=== PATIENT | male | born 1940 | race Caucasian/White ===

== ENCOUNTER 2016-04-15 09:14 | Observation (INO) | payer MEDICARE, OTHER ==
--- NOTE | ~2016-04-15 | DS ---
Discharge Summary [facility] [address] [place]. [address] NAME: CHYNA SAMSON : 38 STATUS : DIS Pramod PAT#: [id number] AGE: 75 ADM/REG DATE : 04/15/16 MR#: [id number] REPORT SERV DATE: 04/17/16 DICTATED BY: DATE: REPORT STATUS : Draft TRANSCRIBED BY: MODL DATE: 04/16/16 ADMISSION DATE: 04/15/2016 DISCHARGE DATE: 04/16/2016 The patient was admitted to the [facility]. CONSULTANTS: Dr. Cesar Jaimes of Gastroenterology. DISCHARGE DIAGNOSES: 1. Hematochezia/red blood in the colon on colonoscopy, suspect diverticular. 2. Mild anemia, no acute blood loss anemia during the admission. No transfusion. 3. History of pulmonary fibrosis, on outpatient Ofev therapy. 4. Paroxysmal atrial fibrillation, rate controlled. Not on therapeutic anticoagulation. On aspirin alone for stroke prophylaxis. 5. Hypertension. 6. Osteoarthritis. 7. Hypothyroidism. 8. History of obstructive sleep apnea, utilizing nocturnal CPAP. 9. 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 IMAGING: None. DIAGNOSTICS: Include a colonoscopy prior to admission, no diagnostics during the hospitalization. PERTINENT LABS: Basic metabolic panel x2, normal. CBC demonstrating stable mild anemia with hemoglobin values between 11 and 12. Liver enzymes normal. BRIEF HISTORY: For full details, please see the previously dictated history of present illness by me on 04/15/2016. This is a 75-year-old white male, who had been experiencing intermittent rectal bleeding. Symptoms became progressive as he was completing a colonoscopy prep on the night of 04/14/2016. He underwent his colonoscopy on 04/15/[address] Luz Maria Mendoza noted blood throughout the colon. The source of bleeding could not be identified. Request was made for admission to the Hospitalist Service for observation. HOSPITAL COURSE: The patient was observed overnight in the hospital, on IV fluids with serial hemoglobin and hematocrit values. He did not pass any blood by rectum. He denied any abdominal pain. His diet was advanced without nausea, vomiting, or other issue. He was seen by Gastroenterology on the afternoon of 04/16/2016 and was felt appropriate for discharge to home, with close monitoring and instruction to return to the emergency department should he develop any recurrent hematochezia. Otherwise, he will need to follow up with Luz Maria Mendoza within two to four weeks. He has no specific activity or dietary restrictions at discharge. Discharge Summary [place] [address] [place], [place]. [address] NAME: CHYNA SAMSON : 38 STATUS : DIS Pramod PAT#: [id number] AGE: 75 ADM/REG DATE : 04/15/16 MR#: [id number] REPORT SERV DATE: 04/17/16 DICTATED BY: DATE: REPORT STATUS : Draft TRANSCRIBED BY: MODL DATE: 04/16/16 DISCHARGE MEDICATIONS: Include: 1. Lipitor 40 mg p.o. at bedtime. 2. Cardizem 120 mg p.o. q.a.m. 3. Flecainide 150 mg p.o. every 12 hours. 4. Synthroid 150 mcg p.o. daily. 5. Nexium 40 mg p.o. daily. 6. Aspirin 81 mg p.o. daily. 7. Micardis/HCTZ 40/12.5 mg p.o. q.a.m. 8. Ofev 150 mg p.o. b.i.d. 9. Imodium 2 mg p.o. b.i.d. CHE/MICAELA Justin Gale M.D. / [id number] CC: Winter Herrera M.D. Carlos Baleeiro, M.D. Colleen Schmitt, M.D.
--- NOTE | ~2016-04-15 | HP ---
History And Physical [place] [address] [place]. [address] NAME: CHYNA SAMSON : 38 STATUS : ADM Pramod PAT#: [id number] AGE: 75 ADM/REG DATE : 04/15/16 MR#: [id number] REPORT SERV DATE: 04/15/16 DICTATED BY: DATE: REPORT STATUS : Draft TRANSCRIBED BY: MODL DATE: 04/15/16 DATE OF ADMISSION: 04/15/2016 The patient is admitted to the [facility] Hospitalist Service. CHIEF COMPLAINT: "Colon full of red blood." HISTORY OF PRESENT ILLNESS: Mr. Chyna Samson is a 75-year-old white male, who has been experiencing rectal bleeding off and on for the past one month. He did not think much of it initially because he does have a history of some hemorrhoids, and he had experienced slight hemorrhoidal bleeding in the past. He also takes a medication for pulmonary fibrosis, which causes diarrhea. He saw his hand bender, Dr. Luz Maria Mendoza, approximately one month ago with complaints of rectal bleeding and diarrhea, and was set up for a colonoscopy, which occurred this morning. On colonoscopy, Dr. Mendoza noted that there was an extensive amount of red blood which became bilious-appearing in the more proximal. She went in the colon. She could not find the specific source of the bleeding., and recommended that the patient be admitted to the Hospitalist Service for close monitoring of vital signs and hemoglobin. Noted plan is for an EGD tomorrow. On further questioning, the patient reports that he did begin passing some blood clots by rectum with the colonoscopy prep last night, but prior to last night, had not been experiencing any significant bleeding aside from the previously noted rectal bleeding off and on for the past month. The patient denies any recent chest pain or shortness of breath, different than baseline. He denies any presyncope or syncopal episodes. He feels that he has had good exertional tolerance recently and has not felt particularly weak. He denies any abdominal pain or recent changes in appetite. He denies nausea, vomiting, or hematemesis. REVIEW OF SYSTEMS: Full 14-point review of systems is negative except as dictated in the history of present illness. PAST MEDICAL HISTORY: 1. Includes pulmonary fibrosis requiring 3 to 4 L of oxygen by nasal cannula continuously. Crossing Supervisor, Dr. Valentin Ramirez. 2. Atrial fibrillation, paroxysmal. Managed by Dr. Beckett. Not on any chronic anticoagulation. 3. Hypertension. 4. Hypothyroidism. 5. Obstructive sleep apnea, utilizing home CPAP. 6. Osteoarthritis. PAST SURGICAL HISTORY: Includes spinal stenosis surgery, epidural spinal injections, right rotator cuff surgery, and repair of an umbilical hernia. History And Physical [address] [address] NAME: CHYNA SAMSON : 38 STATUS : ADM Pramod PAT#: [id number] AGE: 75 ADM/REG DATE : 04/15/16 MR#: [id number] REPORT SERV DATE: 04/15/16 DICTATED BY: DATE: REPORT STATUS : Draft TRANSCRIBED BY: MICAELA DATE: 04/15/16 ALLERGIES: NO KNOWN DRUG ALLERGIES. HOME MEDICATIONS: Include: 1. Aspirin 81 mg p.o. daily. 2. Lipitor 40 mg p.o. at bedtime. 3. Cardizem CD 120 mg p.o. q.a.m. 4. Nexium 40 mg p.o. daily. 5. Flecainide 150 mg p.o. every 12 hours. 6. Levothyroxine 150 mcg p.o. daily. 7. Micardis/HCTZ 40/12.5 mg one tablet p.o. q.a.m. 8. Ofev 150 mg p.o. b.i.d. 9. Imodium 2 mg p.o. b.i.d. SOCIAL HISTORY: The patient is , and is here at the bedside. His daughter is here at the bedside as well. 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 He smoked very remotely and quit over 50 years ago with no significant intake. He drinks wine socially when he is out with friends or out at a restaurant. He denies daily alcohol use. He denies use of any illicit substances. He is the remaining surviving child of nine children in his family. FAMILY HISTORY: Pertinent for colon cancer in a brother. Breast cancer in a sister. COPD in two other siblings. All his other siblings are . PHYSICAL EXAMINATION: VITAL SIGNS: Blood pressure 130/67, pulse 60, respiration rate 12, oxygen saturations 97% on 3 L nasal cannula, temperature 97 degrees. GENERAL: This is an obese white male, in no acute distress. Alert and oriented in three dimensions. Pleasant and conversant. HEENT: Normocephalic, atraumatic. Pupils are equally round and reactive to light. No scleral icterus. No conjunctival pallor. No sinus tenderness to palpation. No nasal drainage. Oropharynx is moist and pink with no posterior pharyngeal erythema. No exudate. NECK: Supple with no jugular venous distention. No lymphadenopathy. CARDIOVASCULAR: Regular rate and rhythm. No murmurs, rubs or gallops. LUNGS: Clear to auscultation bilaterally with no wheezes, crackles, or rhonchi. ABDOMEN: Abdomen is soft, nondistended, nontender with normoactive bowel sounds in four quadrants. No hepatosplenomegaly. EXTREMITIES: No cyanosis, clubbing, or edema of the left lower extremity, trace edema of the right lower extremity. The patient's state is chronic due to his prior pseudomonal skin infection. NEUROLOGIC: Cranial nerves 2 through 12 were tested and are intact. Deep tendon reflexes 2+ bilateral brachioradialis and patellar tendons. Sensation intact to fine touch and temperature in all four limbs. Strength 5/5 bilateral upper and lower extremities. LABORATORY DATA: 1. White blood cell count 7.1, hemoglobin 11.5, hematocrit 33.1, platelets 172, INR 1.2. Sodium 141, potassium 4.3, chloride 106, bicarb 26, BUN 15, creatinine 0.76, glucose 111, calcium 8.8, total protein 6.4, albumin 3.1, total bilirubin 0.5, alkaline phosphatase 55, ALT 19, AST 19. History And Physical [address] [address] NAME: CHYNA SAMSON : 38 STATUS : ADM Pramod PAT#: [id number] AGE: 75 ADM/REG DATE : 04/15/16 MR#: [id number] REPORT SERV DATE: 04/15/16 DICTATED BY: DATE: REPORT STATUS : Draft TRANSCRIBED BY: MICAELA DATE: 04/15/16 2. EGD report was reviewed and is on the chart. IMPRESSION: 1. Hematochezia/red blood throughout the colon on colonoscopy. Question diverticular versus upper gastrointestinal source. 2. Mild anemia. 3. History of pulmonary fibrosis, oxygen-dependent, on Ofev. 4. Paroxysmal atrial fibrillation, rate controlled, not anticoagulated. 5. Hypertension. 6. Osteoarthritis. 7. Hypothyroidism. 8. History of obstructive sleep apnea, on chronic CPAP, nightly. PLAN: 1. The patient has been admitted in observation status to [address] [place] [address]. He has been placed on IV fluids, clear liquids, made n.p.o. after midnight for possible EGD as noted per prior GI plan. GI consultation is pending. 2. q.6 hour H and H with transfusion if hemoglobin less than 7 or for other signs of hemodynamic instability. 3. Aspirin is on hold. 4. Non-pharmacologic DVT prophylaxis. 5. Home medications were continued with blood pressure parameters. Discussed Ofev specifically with Dr. Valentin Ramirez as bleeding is a potential side effect of this medication. He recommended continuing the medication unless hemodynamically significant GI bleeding or the need for transfusion develops. He noted that diarrhea is most common side effect of Ofev and recommended that the patient continue taking Imodium for this. [place] dosing will be discussed further with GI. CHE/MICAELA Justin Gale M.D. / [id number] CC: Justin Gale M.D. Dary Estrella M.D. Cesar Beckett M.D., Ph.D, F.A.C.C. Valentin Ramirez M.D. Luz Maria Mendoza M.D.
--- NOTE | ~2016-04-15 | EGD ---
EGD REPORT [facility] [address] [place] [address] NAME: CHYNA SAMSON : 38 STATUS : DIS Pramod PAT#: [id number] AGE: 75 ADM/REG DATE : 04/15/16 MR#: [id number] REPORT SERV DATE: 04/22/16 DICTATED BY: DATE: REPORT STATUS : Draft TRANSCRIBED BY: [facility] DATE: 04/22/16 Endoscopy Center Patient Name: Chyna Samson Date of : 1940 Attending MD: ANJU MEJIA MD Procedure Date No Time: 04/15/2016 Procedure: Colonoscopy Indications: Chronic diarrhea Referring MD: CARRIE RAMIREZ MD Medicines: Monitored Anesthesia Care Complications: No immediate complications. Procedure: Pre-Anesthesia Assessment: - ASA Grade Assessment: III - A patient with severe systemic disease. After I obtained informed consent, the scope was passed under direct vision. Throughout the procedure, the patient's blood pressure, pulse, and oxygen saturations were monitored continuously. The PCF [id number] was introduced through the anus and advanced to the terminal ileum. The colonoscopy was performed without difficulty. The patient tolerated the procedure well. The quality of the bowel preparation was good. Findings: The perianal exam was abnormal. Findings include hemorrhoids. Multiple small and large-mouthed diverticula were found in the entire colon. I suspect these are the cause of bleeding Red blood was found in the entire colon. This became more bilious proximally. There is no endoscopic evidence of mass, polyps, ulcerations or angioectasia in the entire colon. Biopsies were taken with a cold forceps from the entire colon for evaluation of microscopic colitis. No additional abnormalities were found on retroflexion. The terminal ileum appeared normal. Bilious secretions were seen. Impression: - Hemorrhoids found on perianal exam. - Diverticulosis in the entire examined colon. Suspected source. - Blood in the entire examined colon. Recommendation: - Admit the patient to hospital stein for observation. - Await pathology results. - Continue present medications. - No aspirin, ibuprofen, naproxen, or other non-steroidal anti-inflammatory drugs. EGD REPORT [address] [address] NAME: CHYNA SAMSON : 38 STATUS : DIS Pramod PAT#: [id number] AGE: 75 ADM/REG DATE : 04/15/16 MR#: [id number] REPORT SERV DATE: 04/22/16 DICTATED BY: DATE: REPORT STATUS : Draft TRANSCRIBED BY: [place] DATE: 04/22/16 - Check serial H/H, chemistries. EGD in AM. - Clear liquid diet today. Procedure Code(s): --- Professional --- 88077, Colonoscopy, flexible, proximal to splenic flexure; with biopsy, single or multiple Diagnosis Code(s): --- Professional --- K64.9, Unspecified hemorrhoids K57.30, Diverticulosis of large intestine without perforation or abscess without bleeding K92.2, Gastrointestinal hemorrhage, unspecified K52.9, Noninfective gastroenteritis and colitis, unspecified CPT copyright 2013 [employer]. All rights reserved. The codes documented in this report are preliminary and upon straightener review may be revised to meet current compliance requirements. ANJU MEJIA MD 04/22/2016 1:10 PM This report has been signed electronically. Number of Addenda: 0 Note Initiated On: 04/15/2016 10:16 AM Scope Withdrawal Time 0 hours 19 minutes 39 seconds [id number] [place] [id number]
--- NOTE | ~2016-04-15 | CN ---
Consultation Report [facility] [address] [facility] [place]. [address] NAME: CHYNA SAMSON : 38 STATUS : ADM Pramod PAT#: [id number] AGE: 75 ADM/REG DATE : 04/15/16 MR#: [id number] REPORT SERV DATE: 04/16/16 DICTATED BY: CESAR MENDIOLA DATE: 04/16/16 REPORT STATUS : Draft TRANSCRIBED BY: MODL DATE: 04/16/16 INPATIENT CONSULT NOTE DATE OF CONSULTATION: 04/16/2016 REASON FOR CONSULTATION: Hematochezia. HISTORY OF PRESENT ILLNESS: Mr. Samson is a very pleasant 75-year-old male with no significant past medical history, who has been having intermittent rectal bleeding for approximately the past month. Yesterday the patient underwent a colonoscopy with his commercial mortgage broker Dr. Luz Maria Mendoza and was noted to have a large amount of blood in the distal portion of the colon. No definitive source of bleeding was seen. The patient was noted to have internal hemorrhoids as well as diverticuli. Due to the bleeding, the patient was admitted to the hospital for observation. Since that time, he has had no further bowel movements although he has been passing gas. Hemoglobin has been stable between 11.3 and 11.9. The patient was noted to have a normal BUN of 8. The patient states that he has had no abdominal pain. No further signs of bleeding. No nausea or vomiting. REVIEW OF SYSTEMS: All systems reviewed except for what was mentioned in the history of present illness was negative. PAST MEDICAL HISTORY: Includes 1. Pulmonary fibrosis. 2. Atrial fibrillation. 3. Hypertension. 4. Hypothyroidism. 5. Obstructive sleep apnea. 6. Osteoarthritis. 7. Status post umbilical hernia repair. FAMILY HISTORY: The patient has a family history pertinent for colon cancer in his brother. SOCIAL HISTORY: The patient quit smoking more than 50 years ago. No excessive alcohol use. No illicit substance use. ALLERGIES: THE PATIENT HAS NO KNOWN DRUG ALLERGIES. OUTPATIENT MEDICATIONS INCLUDE: 1. Aspirin 81 mg p.o. daily. 2. Lipitor. 3. Cardizem. Consultation Report [facility] [address] [place]. [address] NAME: CHYNA SAMSON : 38 STATUS : ADM Pramod PAT#: [id number] AGE: 75 ADM/REG DATE : 04/15/16 MR#: [id number] REPORT SERV DATE: 04/16/16 DICTATED BY: CESAR MENDIOLA DATE: 04/16/16 REPORT STATUS : Draft TRANSCRIBED BY: MICAELA DATE: 04/16/16 4. Nexium. 5. Flecainide. 6. Levothyroxine. 7. Micardis/HCTZ. 8. Ofev. 9. Imodium. PHYSICAL EXAMINATION: VITAL SIGNS: Most recent vital signs include a temperature 98.0, pulse rate of 65, blood pressure 140/67, and saturating 96% on room air. GENERAL INSPECTION: Reveals an elderly male, sitting in a chair in no apparent distress. HEENT: Head is normocephalic, atraumatic with normal inspection of the oral mucosa with moist mucous membranes. Sclerae are nonicteric. Pupils are equal and round. HEART: Heart rate is regular with normal S1 and S2. LUNGS: Sounds clear to auscultation bilaterally. ABDOMEN: Soft, nontender, nondistended with normoactive bowel sounds. No cyanosis, clubbing, or edema. No jaundice or rash. No gross motor deficits. He is alert and oriented. Mood and affect are appropriate. Judgment appears to be intact. LABORATORY STUDIES: Most recent lab results include a CBC that demonstrated a hemoglobin of 11.6, white count of 10.0, and a platelet count of 189,000. Electrolyte profile showed normal BUN of 8 and a creatinine of 0.8. No pertinent imaging to review. ASSESSMENT/PLAN: Mr. Samson is a very pleasant 75-year-old male with no significant past medical history, who presented after colonoscopy with blood filling in his colon; however, the patient has had no further rectal bleeding and he has had a stable hemoglobin. BUN is normal, therefore no suggestion of upper GI bleeding. The patient can likely be safely discharged to follow up with his primary commercial mortgage broker Dr. Mendoza in the next 2 to 4 weeks. The patient was advised to come back to the emergency department if he should have any further significant hematochezia. Thank you very much for allowing us to participate in Mr. Samson's care. Please call with any questions or concerns you might have. Dmitri/MICAELA Cesar Mendiola MD Consultation Report [place] [id number] [facility] [address] [place]. [address] NAME: CHYNA SAMSON : 38 STATUS : ADM Pramod PAT#: [id number] AGE: 75 ADM/REG DATE : 04/15/16 MR#: [id number] REPORT SERV DATE: 04/16/16 DICTATED BY: CESAR MENDIOLA DATE: 04/16/16 REPORT STATUS : Draft TRANSCRIBED BY: MICAELA DATE: 04/16/16 / [id number] CC: Winter Herrera M.D.
[~2016-04-15 09:14] MED LIST: ASAB PO; CARDCD120 PO; FISH-EPA1000 MG PO; FLECAINIDE150 MG PO; LIPITOR40 PO; MICARDIS HCT PO; NEXIUM40 PO; SYN125 PO; TESTIM1 % TD; VIB100 PO; ZETIA PO
[2016-04-15 11:26] LABS: BASOPHILS 0.3 %; BASOPHILS ABSOLUTE 0.02 10/3/uL (0.0-0.16); EOSINOPHILS 4.4 %; EOSINOPHILS ABSOLUTE 0.31 10/3/uL (0.0-0.53); HEMATOCRIT 33.1 % (40.0-51.0); HEMOGLOBIN 11.5 g/dL (13.6-17.8); IMMATURE GRANULOCYTES 0.3 %; IMMATURE GRANULOCYTES ABSOLUTE 0.02 10/3/uL (0.0-0.11); LYMPHOCYTES 28.3 %; LYMPHOCYTES ABSOLUTE 2.01 10/3/uL (0.67-4.30); MEAN CORPUS HGB CONC 34.7 g/dL (32.0-36.0); MEAN CORPUSCULAR HEMOGLOB 33.8 pg (26.0-34.0); MEAN CORPUSCULAR VOLUME 97.4 fL (80-100); MEAN PLATELET VOLUME 9.3 fL (9.2-13.0); MONOCYTES 6.2 %; MONOCYTES ABSOLUTE 0.44 10/3/uL (0.21-1.20); NEUTROPHILS 60.5 %; NEUTROPHILS ABSOLUTE 4.31 10/3/uL (2.02-8.40); PLATELET COUNT 172 10/3/uL (150-400); RBC DISTRIBUTION WIDTH 12.7 % (12.0-16.0); WHITE BLOOD CELLS 7.1 10/3/uL (4.5-10.5)
[2016-04-15 11:30] LABS: MANUAL DIFF NO %
[2016-04-15 11:31] LABS: INTERNATIONAL NORMAL RATI 1.2 UNITS (-); PARTIAL THROMBO TIME 30.8 SEC (22.5-37.2); PROTIME (NOT ORD) 15.2 SEC (12.0-14.5)
[2016-04-15 11:41] LABS: A/G RATIO 0.9 (0.7-1.9); ALBUMIN 3.1 G/DL (3.5-5.0); BUN (BLOOD UREA NITROGEN) 15 MG/DL (6-23); CALCIUM, SERUM 8.8 MG/DL (8.5-10.4); CHLORIDE, SERUM 106 MMOL/L (96-112); CO2 (CARBON DIOXIDE) 26 MMOL/L (24-34); CREATININE 0.76 MG/DL (0.70-1.30); GFR AFRICAN AMERICAN 102 ML/MIN (>=60); GFR NON AFRICAN AMERICAN 88 ML/MIN (>=60); GLOBULIN 3.3 G/DL (2.5-4.1); POTASSIUM, SERUM 4.3 MMOL/L (3.5-5.3); SGOT(AST) 19 U/L (5-40); SGPT(ALT) 19 U/L (5-65); SODIUM, SERUM 141 MMOL/L (135-148); TOTAL BILIRUBIN 0.5 MG/DL (0-1.2); TOTAL PROTEIN 6.4 G/DL (6.0-8.5)
[2016-04-15 11:42] LABS: ALKALINE PHOSPHATASE 55 U/L (45-117); GLUCOSE, SERUM 111 MG/DL (60-99)
[2016-04-15 17:30] LABS: HEMATOCRIT 34.8 % (40.0-51.0); HEMOGLOBIN 11.9 g/dL (13.6-17.8)
[2016-04-15 23:10] LABS: HEMATOCRIT 33.7 % (40.0-51.0); HEMOGLOBIN 11.3 g/dL (13.6-17.8)
[2016-04-16 07:28] LABS: BASOPHILS 0.1 %; BASOPHILS ABSOLUTE 0.01 10/3/uL (0.0-0.16); EOSINOPHILS 3.7 %; EOSINOPHILS ABSOLUTE 0.37 10/3/uL (0.0-0.53); HEMATOCRIT 34.1 % (40.0-51.0); HEMOGLOBIN 11.6 g/dL (13.6-17.8); IMMATURE GRANULOCYTES 0.3 %; IMMATURE GRANULOCYTES ABSOLUTE 0.03 10/3/uL (0.0-0.11); LYMPHOCYTES 23.8 %; LYMPHOCYTES ABSOLUTE 2.39 10/3/uL (0.67-4.30); MANUAL DIFF NO %; MEAN CORPUSCULAR HEMOGLOB 33.6 pg (26.0-34.0); MEAN CORPUSCULAR VOLUME 98.8 fL (80-100); MONOCYTES 6.9 %; MONOCYTES ABSOLUTE 0.69 10/3/uL (0.21-1.20); NEUTROPHILS 65.2 %; NEUTROPHILS ABSOLUTE 6.54 10/3/uL (2.02-8.40); PLATELET COUNT 189 10/3/uL (150-400); RBC DISTRIBUTION WIDTH 12.7 % (12.0-16.0); RED CELL COUNT 3.45 10/6/uL (4.7-6.1)
[2016-04-16 07:42] LABS: BUN (BLOOD UREA NITROGEN) 8 MG/DL (6-23); CALCIUM, SERUM 8.8 MG/DL (8.5-10.4); CHLORIDE, SERUM 104 MMOL/L (96-112); CO2 (CARBON DIOXIDE) 28 MMOL/L (24-34); CREATININE 0.82 MG/DL (0.70-1.30); GFR AFRICAN AMERICAN 99 ML/MIN (>=60); GFR NON AFRICAN AMERICAN 85 ML/MIN (>=60); GLUCOSE, SERUM 110 MG/DL (60-99); POTASSIUM, SERUM 4.2 MMOL/L (3.5-5.3); SODIUM, SERUM 140 MMOL/L (135-148)
== END 2016-04-16 13:51 | disposition home or self-care (01) ==
LOC: DMU 09:14 → 5SO 14:30
PROVIDERS: Hospitalist; Internal Medicine Gastroenterology
PROC: 0DBE8ZX Excision of Large Intestine, Via Natural or Artificial Opening Endoscopic, Diagnostic (ICD-10-PCS; principal; 2016-04-15 11:00)
DX: K64.9 Unspecified hemorrhoids (principal); K57.30 Diverticulosis of large intestine without perforation or abscess without bleeding; E03.9 Hypothyroidism, unspecified; G47.33 Obstructive sleep apnea (adult) (pediatric); I10 Essential (primary) hypertension; M19.90 Unspecified osteoarthritis, unspecified site; E78.00 Pure hypercholesterolemia, unspecified; J84.10 Pulmonary fibrosis, unspecified; D64.9 Anemia, unspecified; I48.0 Paroxysmal atrial fibrillation; Z96.1 Presence of intraocular lens; Z98.890 Other specified postprocedural states
CPT/HCPCS: 80048; 80053; 85014; 85018; 85025; 85610; 85730; 88305; 94640; A9270-GY; G0378